=== PATIENT | female | born 1985 | race Caucasian/White ===

== ENCOUNTER 2019-11-24 10:35 | Outpatient (CLI) | payer OTHER, SELFPAY ==
--- NOTE | ~2019-11-24 | US_ITS ---
EXAMINATION: US OB <=14 wk fetus w TV DATE: 11/24/2019 11:27 INDICATION: First trimester dating TECHNIQUE: Real-time pelvic transabdominal and transvaginal ultrasound was performed. COMPARISON: None. FINDINGS: The uterus measures 9.0 x 5.0 x 6.7 cm. There is an intrauterine gestational sac. A yolk s ac is identified. heart motion is identified measuring 138 beats per minute (bpm) by M-mode Dop pler. The crown rump length measures 9 mm , which correlates with an estimated gestational age of 7 weeks and 1 day(s) (+/-) 3 day(s). The right ovary measures 2.2 x 1.0 x 1.4 cm. The left ovary measures 3.4 x 2.8 x 2.1 cm. There is no free fluid in the pelvis. IMPRESSION: 1. Live intrauterine with an estimated gestational age of 7 weeks and 1 day(s) (+/-) 3 day( s) and an estimated delivery date of 07/11/2020. Reviewed, dictated and finalized at location A. IMPRESSION: 1. Live intrauterine with an estimated gestational age of 7 weeks and 1 day(s) (+/-) 3 day(s) and an estimated delivery date of 07/11/2020.
== END 2019-11-24 10:36 | disposition home or self-care (01) ==
PROVIDERS: PCP Family Medicine; Visit Provider Obstetrics & Gynecology
DX: Z32.01 Encounter for pregnancy test, result positive (principal); Z3A.01 Less than 8 weeks gestation of pregnancy
CPT/HCPCS: 76801; 76817

== ENCOUNTER 2020-05-17 14:48 | Outpatient (CLI) | payer OTHER, SELFPAY ==
--- NOTE | ~2020-05-17 | US_ITS ---
EXAMINATION: US venous doppler [facility] DATE: 05/17/2020 15:31 INDICATION: Lower limb pain TECHNIQUE: Raymond scale images without and with compression and Doppler images of the bilateral lower e xtremity veins were obtained. COMPARISON: None FINDINGS: The right common femoral vein, profunda femoral vein, femoral vein, popliteal vein, peroneal trunk, p osterior tibial veins, and greater saphenous vein are patent. The left common femoral vein, profunda femoral vein, femoral vein, popliteal vein, peroneal trunk, po sterior tibial veins, and greater saphenous vein are patent. IMPRESSION: 1. Patent bilateral lower extremity veins. No evidence of deep venous thrombosis. Reviewed, dictated and finalized at location A. IMPRESSION: 1. Patent bilateral lower extremity veins. No evidence of deep venous thrombosi s.
== END 2020-05-17 14:49 | disposition home or self-care (01) ==
PROVIDERS: PCP Family Medicine; Visit Provider Obstetrics & Gynecology Obstetrics
DX: O22.03 Varicose veins of lower extremity in pregnancy, third trimester (principal); O26.893 Other specified pregnancy related conditions, third trimester; M79.662 Pain in left lower leg; Z3A.32 32 weeks gestation of pregnancy
CPT/HCPCS: 93970

== ENCOUNTER 2020-07-06 09:32 | Outpatient (RCR) | payer OTHER, SELFPAY ==
--- NOTE | ~2020-07-06 | US_ITS ---
EXAMINATION: US OB limited DATE: 07/06/2020 10:34 INDICATION: Oligohydramnios. Third trimester. TECHNIQUE: Real-time ultrasound of the pelvis was performed. COMPARISON: Ultrasound 11/24/19 FINDINGS: There is a single fetus in vertex presentation. The placenta is posterior. heart rate is 137 b eats per minute (bpm). The amniotic fluid index is 13.4 cm, which is normal. IMPRESSION: 1. Single living fetus in vertex presentation. 2. Normal amniotic fluid index. Reviewed, dictated and finalized at location A. D PARTY MANAGER
[2020-07-06 10:12] VITALS: BP 123/79; PULSE 78
--- NOTE | 2020-07-06 11:38 | PC.NURSE ---
1115 dr oh returned call to exchange notified of reactive nst and [place] of 13.4, december dc to home
== END 2020-07-13 07:37 | disposition home or self-care (01) ==
LOC: ANHOBOP 09:32
PROVIDERS: PCP Family Medicine; Visit Provider Obstetrics & Gynecology
DX: O36.8390 Maternal care for abnormalities of the fetal heart rate or rhythm, unspecified trimester, not applicable or unspecified (principal); Z3A.39 39 weeks gestation of pregnancy
CPT/HCPCS: 59025; 76815

== ENCOUNTER 2020-07-07 15:59 | Inpatient (IN) | payer OTHER, SELFPAY ==
[2020-07-07] VITALS (11 sets, daily range): BP systolic 105–124; BP diastolic 57–74; PULSE 67–79; TEMP 36.9; BMI 35.8
--- NOTE | 2020-07-07 16:56 | WPDANESEPPF ---
Anes - Initial Pre Proc Eval Procedure: Labor epidural Date/Time: 07/07/20 16:56 Surgeon: Manfred Greene MD Pre Op Diagnosis: Labor pain Pre Op Diagnosis: Induction of Labor Patient Data Age: 34 Gender: F Height: Weight: Last Vital Signs Pulse 73 07/07/20 16:21 BP 111/74 07/07/20 16:21 Allergies Allergy/AdvReac Type Severity Reaction Status Date / Time No Known Allergies Allergy Verified 07/06/20 08:37 Home Medications Medication Instructions Recorded Confirmed Type adalimumab 40 mg/0.4 mL 40 mg SUB-Q WEEKLY PRN each 07/14/19 07/06/20 History subcutaneous syringe kit vits 75-iron 28 mg-folic pkg PO 07/14/19 07/06/20 History acid 800 mcg-omega-3 oral combo pack folic acid 06/12/20 07/06/20 History Patient hx anesthesia problems: none Family hx anesthesia problems: none PMFSH Past Medical History Medical History (Updated 07/06/20 @ 12:43 by Manfred Greene MD) Anxiety test positive Rheumatoid arthritis Supervision of other high risk pregnancies, first trimester Family History Family History Father Family history of elevated blood lipids Family history of coronary artery disease Hypertension Mother Patient's mother is Family history of malignant neoplasm of brain, Onset Age: 52 Grandparent Family history of malignant neoplasm of breast Family history of coronary artery disease Social History Social History Smoking status: Current every day smoker Second hand tobacco smoke exposure: No Alcohol intake: current Substance use: never Spiritual care concerns: No Anes - Eval Final PreProcedure Day of Procedure 07/07/20 16:56 Patient weight: obese Neurological: alert and oriented ASA classification: III Anesthesia type and monitoring: regional epidural Informed Consent: The patient's anesthetic plan and its attendant risks and benefits were discussed with the patient/family/POA. Questions were solicited and answers provided to the satisfaction of the patient/family/POA.
[2020-07-07 17:04] LABS: Basophils Percent Auto 0.2 % (0.2-1.2); Eosinophils Percent Auto 0.3 % (0-4.4); Hematocrit 34.2 % (37.0-47.0); Immature Granulocyte Absolute 0.05 K/mm3 (0.00-0.031); Immature Granulocyte Percent A 0.4 % (0-0.5); Lymphocytes Absolute Auto 2.28 K/mm3 (0.9-3.2); Lymphocytes Percent Auto 17.8 % (18.3-44.2); Mean Corpuscular HGB Conc 35.1 g/dl (32-36); Mean Corpuscular Volume 91.2 fl (80-100); Mean Platelet Volume 10.2 fl (7.4-10.4); Monocytes Absolute Auto 0.9 K/mm3 (0.1-0.6); Monocytes Percent Auto 7.3 % (2.6-8.5); Neutrophils Absolute Auto 9.5 K/mm3 (1.3-6.7); Platelet Count Result 218 k/mm3 (150-375); Red Blood Count 3.75 M/mm3 (4.2-5.4); Red Cell Distribution Width 12.4 % (11.5-14.5); White Blood Count 12.8 K/mm3 (4.5-10.0)
--- NOTE | 2020-07-07 17:18 | LDADM ---
This patient, Kymberly Garcia, was admitted to Labor/Delivery/Recovery 106 on 07/07/20 at 15:59. Plans for labor, pain management and were discussed with patient. Patient/family oriented to hospital policies and general routines including ID bracelet, bed and alarms, visiting hours, pain management, procedures, bathroom and other care routines, personal items, smoking policy, room service/diet and guest tray routines, security routines, and visiting hours. Patient/Family are encouraged to report perceived risks to care and to ask questions if they do not understand what they are told or what they should do. See OBIX for further documentation.
[2020-07-07] MEDS: DINOPROSTONE 10 MG VAG INSERT VAGINAL (17:40)
[2020-07-07 17:57] LABS: HIV 1/2 Ab P24 Ag Result Negative (Negative)
[2020-07-08] VITALS (48 sets, daily range): BP systolic 89–136; BP diastolic 54–102; PULSE 57–86; RESP 16–18; TEMP 36.4–37.2; O2SAT 95–100
[2020-07-08] MEDS: LACTATED RINGERS 1,000 ML 125 ML IV CONT ×2 (06:26→09:37)
[2020-07-08] MEDS: OXYTOCIN 30 UNITS/NS 500 ML 30 UNITS/500 ML BAG IV CONT (06:27)
[2020-07-08 07:46] LABS: Rapid Plasma Reagin Non-Reactive (NonReactive)
[2020-07-08] MEDS: fentaNYL CITRATE INJ (*CRX) 100 MCG/2 ML VIAL IV PUSH ×2 (08:39→09:36)
[2020-07-08] MEDS: OXYTOCIN 30 UNITS/NS 500 ML 30 UNITS/500 ML BAG 125 UNITS IV CONT (10:56)
--- NOTE | 2020-07-08 12:19 | PM.OBPRVD ---
OB - Delivery Note Procedure Delivery date: 07/08/20 Procedure: Spontaneous vaginal delivery events: Rhuematoid arthritis Intrapartal events: None Induction method: per cervidil protocol Delivery augmentation: rupture of membranes and pitocin Delivery monitor: external FHT Route of delivery: Laceration Description: Perineal - 1st Degree Delivery repair: vicryl (3.0 vicryl) Specimen: No Quantitative Blood Loss: 250 Anesthesia type: Local Disposition: floor Complications: None Narrative: Patient admitted for medical induction of labor. Cervix initally was 1/50/-3. She had cervidil last pm and then was started on Pitocin this morning. At approximately 0824 she had AROM clear fluid. Cervix was 4/75%/-2. She requested epidural. Epidural was attempted but was not successful and she then felt pressure and was complete. She delivered a female at 1015. Apgars 8,9. weight 7lb7oz. was vigorously crying and she was placed on maternal abdomen. Delayed cord clamping until cord apulsatile which was approximately 45 sec after delivery. Cord blood and cord gases obtained. Placenta delivered spontaneously and intact. She sustained a first degree perineal laceration repaired with 3.0 vicryl. She tolerated procedure well. Baby Date of : 07/08/20 Time of : 10:15 Weeks of gestation at delivery: 39 Infant gender: Female Weight (pounds): 7 Weight (ounces): 7 presentation: vertex position: Right Occiput Anterior Placenta delivery description: Spontaneous cord vessel description: 3 Vessels score one minute: 8 score five minutes: 9
--- NOTE | 2020-07-08 12:35 | PM.OBPNVD ---
OB - PN: Subj Subjective Date/time seen: 07/08/20 0830 FHT 135 Cat 1. AROM clear. Cervix /2. Continue pitocin. Patient desires epidural. OB - PN: Obj Data Labs CBC & Chem 7: 07/07/20 16:58 Labs: Laboratory Results - last 24 hr 07/07/20 07/07/20 07/07/20 16:58 16:58 16:58 WBC 12.8 H RBC 3.75 L Hgb 12.0 Hct 34.2 L MCV 91.2 MCH 32.0 MCHC 35.1 RDW 12.4 Plt Count 218 MPV 10.2 Immature Gran % (Auto) 0.4 Neut % (Auto) 74.0 H Lymph % (Auto) 17.8 L [place] % (Auto) 7.3 Eos % (Auto) 0.3 Baso % (Auto) 0.2 Lymph # (Auto) 2.28 [place] # (Auto) 0.9 H Eos # (Auto) 0.0 Baso # (Auto) 0.0 Abs Immat Gran (auto) 0.05 H Absolute Neuts (auto) 9.5 H Absolute Nucleated RBC 0.0 Nucleated RBC % 0.0 RPR Non-reactive HIV 1&2 Ab/P24 Ag 4thGn Negative Blood Type Antibody Screen 07/07/20 16:58 WBC RBC Hgb Hct MCV MCH MCHC RDW Plt Count MPV Immature Gran % (Auto) Neut % (Auto) Lymph % (Auto) [place] % (Auto) Eos % (Auto) Baso % (Auto) Lymph # (Auto) [place] # (Auto) Eos # (Auto) Baso # (Auto) Abs Immat Gran (auto) Absolute Neuts (auto) Absolute Nucleated RBC Nucleated RBC % RPR HIV 1&2 Ab/P24 Ag 4thGn Blood Type O Positive Antibody Screen Negative OB - PN A/P Time Spent With Patient Time: Total time spent is greater than 50% in coordination of care (as documented) at patient's floor/unit and/or counseling patient:
--- NOTE | 2020-07-08 12:37 | PM.IMHP ---
H&P: HPI History of Present Illness Date/Time: 07/08/20 12:37 Chief complaint: Induction of Labor Narrative: Kymberly Garcia is a 34 year old female at 39 3/7 weeks by LMP 10/06/19 with an EDC 07/12/20. PNC significant for history of rheumatoid arthritis which she was doing well on Humira injections. Last injection at 37 weeks. Has not had any significant RA symptoms or flare ups during this gestation. She also has Sjorgens and had positive SSA. No signs of heart block during the . She has a remote history of hypertension. She has not been on medication prior to or during . Her blood pressures have been normal during . She was taking a baby aspirin after 12 weeks until 37 weeks. Also significant for tobacco abuse. She was counseled and declined medication. She is a light every day smoker. She has been counseled regarding risk benefits of medical induction of labor versus spontaneous and desires induction. GBS neg. Labs reviewed. Review of Systems Review of Systems: All systems reviewed & are unremarkable except as noted in HPI and below Constitutional: Constitutional: Reports no additional constitutional complaints and Denies headache(s) Eyes: Eyes: Denies spots in vision ENT: Reports system reviewed and no additional complaints, except as documented and Denies headache(s) Cardiovascular: Cardiovascular: Denies chest pain and Denies dyspnea Respiratory: Respiratory: Denies dyspnea Gastrointestinal: Gastrointestinal: Reports no additional gastrointestinal complaints Genitourinary: Genitourinary: Reports amenorrhea Musculoskeletal: Musculoskeletal: Reports no additional musculoskeletal complaints Integumentary/Breasts: Skin/Breast: Denies breast mass and Denies rash Neurologic: Denies headache(s) Psychiatric: Psychiatric: Reports no additional psychiatric complaints [facility] Past Medical History Medical History (Updated 07/08/20 @ 12:46 by Manfred Greene MD) Anxiety test positive Rheumatoid arthritis Supervision of other high risk pregnancies, first trimester Family History Family History Father Family history of elevated blood lipids Family history of coronary artery disease Hypertension Mother Patient's mother is Family history of malignant neoplasm of brain, Onset Age: 52 Grandparent Family history of malignant neoplasm of breast Family history of coronary artery disease Social History Social History Smoking status: Former smoker Second hand tobacco smoke exposure: No Alcohol intake: current Substance use: never Spiritual care concerns: No Meds Home Medications and Allergies Home Medications Medication Instructions Recorded Confirmed Type adalimumab 40 mg/0.4 mL 40 mg SUB-Q WEEKLY each 07/14/19 07/08/20 History subcutaneous syringe kit Allergies Allergy/AdvReac Type Severity Reaction Status Date / Time No Known Allergies Allergy Verified 07/06/20 08:37 Vital Signs Vital Signs - 24 hr 07/07/20 16:20 07/07/20 16:21 07/07/20 17:01 Temperature 98.5 F Pulse Rate 73 72 Blood Pressure 111/74 105/69 Pulse Oximetry 07/07/20 17:31 07/07/20 18:01 07/07/20 18:31 Temperature Pulse Rate 70 75 68 Blood Pressure 114/70 118/68 109/68 Pulse Oximetry 07/07/20 19:01 07/07/20 19:31 07/07/20 20:09 Temperature Pulse Rate 79 73 67 Blood Pressure 111/67 115/67 124/57 L Pulse Oximetry 07/07/20 20:31 07/07/20 20:51 07/08/20 03:05 Temperature Pulse Rate 68 68 72 Blood Pressure 121/72 121/72 115/70 Pulse Oximetry 07/08/20 03:15 07/08/20 06:35 07/08/20 06:37 Temperature 98.8 F 98.1 F Pulse Rate 72 Blood Pressure 130/70 Pulse Oximetry 07/08/20 08:26 07/08/20 08:31 07/08/20 09:01 Temperature Pulse Rate 66 63 59
--- NOTE | 2020-07-08 12:46 | PC.NURSE ---
Patient transferred to post room #284 via wheelchair. Support person present. Oriented to unit, room, information board, rooming in, admission packet and security measures. Patient verbalizes understanding.
[2020-07-08] MEDS: IBUPROFEN 600 MG TABLET PO ×2 (13:19→19:06)
[2020-07-08] MEDS: LANOLIN (LANSINOH) 7.5 GM CREAM 1 APPLIC TOPICAL (13:20)
[2020-07-09] MEDS: IBUPROFEN 600 MG TABLET PO ×2 (05:11→10:38)
[2020-07-09 05:33] LABS: Hematocrit 31.2 % (37.0-47.0); Hemoglobin 10.8 g/dL (12.0-15.0)
--- NOTE | 2020-07-09 07:40 | PC.NURSE ---
PT introductions made and plan of care discussed per post , pain management, breast feeding, daily care activities and pending discharge to home> PT verbalized understanding of such care.
[2020-07-09 07:45] VITALS: BP 114/78; PULSE 83; RESP 18; TEMP 37; O2SAT 97
--- NOTE | 2020-07-09 08:09 | WPDANESPN ---
Anes - Prog Note Post-Op Date/Time: 07/09/20 08:09 Cardiovascular status: normal Respiratory status: normal Airway patency: baseline Mental status: baseline Post-Op hydration status: normal Vital Signs: Last Vital Signs Temp 36.9 C 07/08/20 20:05 Pulse 79 07/08/20 20:05 Resp 16 07/08/20 20:05 BP 112/67 07/08/20 20:05 Pulse Ox 100 07/08/20 20:05 Pain Score (VAS): 0 Laboratory Tests 07/09/20 05:16 07/09/20 05:16 Hgb 10.8 L Hct 31.2 L Post-procedural complaints: none Patient Feedback: Patient satisfied with anesthetic care.
--- NOTE | 2020-07-09 08:10 | WPDANLDPN2 ---
Anes-Prog Note L&D Date/Time: 07/09/20 08:10 Comfortable throughout: labor and delivery Neuraxial method: epidural Epidural/Spinal procedure site: clean & non-tender Neuro status: Neuro function grossly intact. Cardiovascular status: normal Respiratory status: normal Airway patency: baseline Mental status: baseline Post-Op hydration status: normal Vital Signs: Last Vital Signs Temp 36.9 C 07/08/20 20:05 Pulse 79 07/08/20 20:05 Resp 16 07/08/20 20:05 BP 112/67 07/08/20 20:05 Pulse Ox 100 07/08/20 20:05 Pain score (VAS): 0 Post-procedural complaints: none Patient feedback: Patient satisfied with anesthetic care.
--- NOTE | 2020-07-09 09:39 | PM.OBPNVD ---
OB - PN: Subj Subjective Date/time seen: 07/09/20 09:39 Patient comments: pain well controlled, tolerating diet and other (Decreasing lochia.) baby status: doing well and nursing well OB - PN: Obj Data Labs CBC & Chem 7: 07/09/20 05:16 Labs: Laboratory Results - last 24 hr 07/09/20 05:16 Hgb 10.8 L Hct 31.2 L OB - PN A/P Plan day: 2 Plan: discharge home and other Comments: Patient doing well. Follow up 4-6 weeks. Discharge instructions provided. Time Spent With Patient Time: Total time spent is greater than 50% in coordination of care (as documented) at patient's floor/unit and/or counseling patient: Time with patient: less than 15 minutes Exam Psych: Affect: normal affect Other: Abd: fundus firm below umbilicus, nontender Perineum: healing Ext: nontender
[2020-07-09 10:30] VITALS: PULSE 83; RESP 18; O2SAT 97
[2020-07-09] MEDS: BENZOCAINE 20% AER SPR (*SP) 56 GM CAN 1 SPRAY TOPICAL (10:37)
[2020-07-09] MEDS: ACETAMINOPHEN 325 MG TABLET 650 MG PO (10:37)
[2020-07-09] MEDS: WITCH HAZEL 40 PADS 1 PAD TOPICAL (10:37)
[2020-07-09] MEDS: DOCUSATE SODIUM 100 MG CAPSULE PO (10:38)
[2020-07-09] MEDS: MULTIVIT/MIN/PREN/FOL AC/IRON TABLET 1 TAB PO (10:38)
--- NOTE | 2020-07-09 11:30 | PC.NURSE ---
PT received discharge instructions per protocol and verbalized understanding of such instructions.
--- NOTE | 2020-07-09 11:50 | PC.NURSE ---
PT discharged to home ambulatory accompanied by spouse and and taken to waiting car.
[2020-07-10 10:01] VITALS: BP 116/74; PULSE 64; RESP 16; TEMP 36.9; O2SAT 99
--- NOTE | 2020-08-05 09:31 | PM.DS ---
DS: Admitting Diagnosis Admitting Diagnosis Admitting Diagnosis: Medical induction of labor. complicated by Rheumatoid arthritis. DS: Discharge Diagnosis Discharge Diagnosis (1) Elective induction of labor planned: Status: Acute (2) Intrauterine : Code(s): Z34.90 - Encounter for supervision of normal , unspecified, unspecified trimester Status: Acute DS: Summary Hospital Course Hospital Course: Patient admitted for induction of labor with cervidil. She had a spontaneous vaginal delivery uncomplicated. She did well . She requested discharge home on day 1. Time Spent with Patient Time attestation: Total time spent providing and/or coordinating discharge services: Exam Const: General: comfortable and no acute distress Eyes: General: appearance normal, both eyes and all related structures Resp: Effort & Inspection: normal respiratory effort Psych: Affect: normal affect Other: Abd: fundus firm below umbilicus, nontender Perineum: healing Ext: nontender Discharge Plan Discharge Attending physician on discharge: Manfred Greene Consulting providers: Kel Araya Discharging Clinician: Manfred Greene Anticipated Discharge Date/Time: 07/09/20 09:36 Patient Disposition: Home, Self-Care Activity: may shower, no straining, may drive after 2 weeks, as tolerated and pelvic rest Diet: regular Discharge Instructions: Education: Mom and Baby Guide Given to: Mother Follow-Up: Call your delivering provider's office for an appointment to be seen in: 4 Weeks Mom and baby should come to the [facility] for the follow-up appointment. Appointment Date/Time: July 10, 2020 at 10:00 am What to expect at your follow-up visit: Blood Pressure Check Call [phone] if you are unable to keep your appointment time. BREAST CARE: * Wear a snug supportive bra. * For engorgement discomfort: Breast Feeding: * Apply warm moist washcloths * Express milk as needed to relieve engorgement * Wear loose clothing Bottle Feeding: * May apply ice packs * For sore nipples: * Identify correct latch-on * Apply warm moist washcloths before and after nursing * Air dry nipples after nursing * May apply Lansinoh cream to nipples PERINEAL CARE: * Until bleeding stops, use your gerry bottle after urinating * Change your pad frequently throughout the day * You may take sitz baths several times a day (fill your bathtub with warm water and soak for 20 minutes.) Do NOT bathe in the water * No tub baths until seen by your physician - You may shower ACTIVITY: * Rest as much as possible. * Do not exercise or lift anything heavier than your baby (such as laundry or other children.) * Avoid stairs or driving as much as possible. * Do not put anything into the vagina. No douching, tampons, or sexual activity until seen by physician. NOTIFY PHYSICIAN IF YOU HAVE ANY QUESTIONS OR IF ANY OF THE FOLLOWING SYMPTOMS OCCUR: * If your perineum becomes red, swollen, or more painful than what you have experienced in the hospital. * If your vaginal bleeding becomes foul smelling. * If your vaginal bleeding becomes more heavy than a period or if your bleeding changes from pink to bright red. However, you may pass an occasional walnut-sized clot once or twice for the first week . * If you experience a sharp, shooting pain in you calves. * If you discover a hard, reddened area on your breast or if you experience flu-like symptoms. * If you have a fever of 100.4 or greater DIET: * Eat regular, well-balanced meals. * Drink plenty of fluids daily. If , drink to thirst. Patient Instructions: Antibiotic Form Stand Alone Forms: General Discharge Information Follow-up/Referrals: Manfred Greene MD [Physician] - Discharg
== END 2020-07-09 11:55 | disposition home or self-care (01) | DRG 807 ==
LOC: ANHLDR 16:09 → ANHOB2 07-08 12:55
PROVIDERS: Admitting Provider Obstetrics & Gynecology; PCP Family Medicine; Visit Provider Obstetrics & Gynecology
DX: O99.214 Obesity complicating childbirth (principal); Z37.0 Single live birth; O70.0 First degree perineal laceration during delivery; O99.334 Smoking (tobacco) complicating childbirth; E66.9 Obesity, unspecified; F17.200 Nicotine dependence, unspecified, uncomplicated; Z3A.39 39 weeks gestation of pregnancy
CPT/HCPCS: 36415; 85014; 85018; 85025; 86592; 86703; 86850; 86900; 86901; A9270; G0432; J2590; J2795; J3010; J7120

== ENCOUNTER → 2021-03-08 06:57 | Outpatient (CLI) | payer OTHER, SELFPAY ==
[2021-03-08 18:17] LABS: SARS-CoV-2 RNA PCR Negative
== END ==
PROVIDERS: PCP Family Medicine; Visit Provider Physician Assistant
DX: R68.89 Other general symptoms and signs (principal); Z20.822 Contact with and (suspected) exposure to COVID-19
CPT/HCPCS: C9803; U0003; U0005

== ENCOUNTER 2022-10-08 09:59 | Emergency (ER) | payer OTHER, SELFPAY ==
--- NOTE | ~2022-10-08 | XR_ITS ---
EXAMINATION: XR abdomen/kub 1V DATE: 10/08/2022 10:49 INDICATION: Bilateral flank pain. TECHNIQUE: A supine view of the abdomen on 2 radiographs was obtained. COMPARISON: None. FINDINGS: There are no dilated loops of bowel. There is a moderate volume of stool in the colon. The kidneys are obscured by bowel. IMPRESSION: 1. Normal bowel gas pattern. Reviewed, dictated and finalized at location A. COATER
[2022-10-08 10:41] VITALS: BP 121/71; PULSE 95; RESP 18; TEMP 36.9; O2SAT 100
--- NOTE | 2022-10-08 10:42 | ED.ABDPAIN ---
HPI - Abdominal Pain General Chief Complaint: Abdominal Pain Stated Complaint: bilateral side and back pain Time Seen by Provider: 10/08/22 10:20 Source: patient Mode of arrival: ambulatory Limitations: no limitations History of Present Illness HPI narrative: Kymberly is a 36-year-old female patient presenting to the clinic today with complaints of bilateral abdominal pain and back pain. She reports the symptoms just started yesterday. Is having some nausea with her symptoms. Denies any vomiting or diarrhea. Last bowel movement was this morning and was normal. She denies any unusual urinary symptoms. She denies any vaginal discharge. Last menstrual period was 2 and half weeks ago. She denies being . No history of abdominal surgeries. Rates pain 7/10 currently and states that is sharp and burning mostly in the left abdomen Related Data Home Medications Medication Instructions Recorded Confirmed abatacept 125 mg/mL subcutaneous 125 mg subcut WEEKLY 10/08/22 10/08/22 syringe (Orencia) Allergies Allergy/AdvReac Type Severity Reaction Status Date / Time No Known Allergies Allergy Verified 10/08/22 10:33 Review of Systems Review of Systems: Pertinent positives per HPI. Patient denies any fever, chills, rash, headache, visual changes, dizziness, cough, runny nose, sore throat, shortness of breath, chest pain, palpitations, vomiting, diarrhea, constipation. PENDING SALE TO [facility] Past Medical History Medical History Anxiety test positive Rheumatoid arthritis Supervision of other high risk pregnancies, first trimester Family History Family History Father Family history of elevated blood lipids Family history of coronary artery disease Hypertension Mother Patient's mother is Family history of malignant neoplasm of brain, Onset Age: 52 Grandparent Family history of malignant neoplasm of breast Family history of coronary artery disease Social History Social History Social History: Smoking packs per day: 0.5 Smoking cigarettes per day: 10.0 Years smoked: 17 Smoking pack-years: 8.50 Smoking status: Current every day smoker Tobacco type: cigarettes Second hand tobacco smoke exposure: No Alcohol intake: current Alcohol use details: Occasionally Substance use: never Substance use type: does not use Living arrangements: with family Occupation/Education: occupation Gender identity (if verbalized by the patient): Female Sexual Orientation (if Verbalized by the Patient): Straight or Heterosexual Spiritual care concerns: No Comments At the time of my signature, I reviewed and agree with the nursing past medical, surgical, social, and family history. There is no relevant family history pertinent to the patient complaint. Exam Narrative: General: Well-developed, well nourished, in no apparent distress. Head: Normocephalic, atraumatic. Cardio: Regular rate and rhythm, s1 and s2 normal, no murmur appreciated. Resp: Clear to auscultation bilaterally, no rhonchi, rales, wheezing or rubs. Abdomen: Soft, pliable, nondistended, bowel sounds present in all quadrants, tender to palpation to the mid epigastric, right lower, left upper, and left lower abdomen, no organomegly, left CVAT tenderness. Course Course Emergency Course: Portions of this record may have been created with voice recognition software. Level of Care: Express Care Visit Vital Signs Vital signs: Vital Signs Temperature 36.9 C 10/08/22 10:41 Pulse Rate 95 10/08/22 10:41 Respiratory Rate 18 10/08/22 10:41 Blood Pressure 121/71 10/08/22 10:41 Pulse Oximetry 100 10/08/22 10:41 Oxygen Delivery Room Air 10/08/22 10:41 Temperature 36.9 C 10/08/22 10:41 Pulse Rate 9
== END 2022-10-08 11:09 | disposition home or self-care (01) ==
PROVIDERS: Emergency Provider Nurse Practitioner Family; PCP Family Medicine
DX: N39.0 Urinary tract infection, site not specified (principal); F17.210 Nicotine dependence, cigarettes, uncomplicated; M06.9 Rheumatoid arthritis, unspecified
CPT/HCPCS: 74018; 81003; 81025; 87086; 87088; 99213; G0463

== ENCOUNTER 2022-10-08 20:22 | Emergency (ER) | payer OTHER, SELFPAY ==
[2022-10-08 20:29] VITALS: BP 112/70; PULSE 80; RESP 19; TEMP 36.7; O2SAT 100
[2022-10-08 20:43] LABS: Basophils Absolute Auto 0.1 K/mm3 (0.0-0.1); Basophils Percent Auto 0.5 % (0.2-1.2); Eosinophils Absolute Auto 0.1 K/mm3 (0-0.3); Eosinophils Percent Auto 1.1 % (0-4.4); Hematocrit 37.7 % (37.0-47.0); Hemoglobin 12.6 g/dL (12.0-15.0); Immature Granulocyte Absolute 0.02 K/mm3 (0.00-0.031); Immature Granulocyte Percent A 0.2 % (0-0.5); Lymphocytes Absolute Auto 1.78 K/mm3 (0.9-3.2); Lymphocytes Percent Auto 18.4 % (18.3-44.2); Mean Corpuscular HGB Conc 33.4 g/dl (32-36); Mean Corpuscular Hemoglobin 31.3 pg (26-34); Mean Corpuscular Volume 93.5 fl (80-100); Mean Platelet Volume 8.9 fl (7.4-10.4); Monocytes Percent Auto 10.1 % (2.6-8.5); Neutrophils Absolute Auto 6.7 K/mm3 (1.3-6.7); Neutrophils Percent Auto 69.7 % (45.5-73.1); Platelet Count Result 205 k/mm3 (150-375); Red Blood Count 4.03 M/mm3 (4.2-5.4); Red Cell Distribution Width 12.5 % (11.5-14.5); White Blood Count 9.7 K/mm3 (4.5-10.0)
[2022-10-08 20:58] LABS: Alanine Aminotransferase 13 U/L (6-35); Albumin Level 4.3 g/dL (3.5-5.1); Alkaline Phosphatase 52 U/L (38-126); Anion Gap 6 mmol/L (8-16); Aspartate Amino Transferase 18 U/L (14-36); Bilirubin,Total 0.4 mg/dL (0.2-1.3); Blood Urea Nitrogen 14 mg/dL (7-17); Carbon Dioxide 28 mmol/L (22-30); Chloride 104 mmol/L (98-107); Estimated CRCL calculation 100 ml/min; Estimated Glomerular Filt Rate > 60; Glucose 89 mg/dL (65-110); Lipase 51 U/L (23-300); Potassium 3.7 mmol/L (3.4-5.0); Sodium 138 mmol/L (137-145)
[2022-10-08 22:21] LABS: Appearance Urine Cloudy (Clear); Bacteria Urine None Seen /hpf; Bilirubin Urine Negative (Negative); Blood Urine Negative (Negative); Color Urine Yellow (Yellow); Glucose Urine UA Negative (Negative); Ketones Urine Negative (Negative); Leukocyte Esterase Ur 1+ LEU/UL (Negative); Need Manual Microscopic Reviewed; Nitrate Urine Negative (Negative); Non Pathogenic Casts 0-2; Protein Urine Negative (Negative); RBC Urine 0-2 /hpf (0-2); Specific Grav Ur 1.015 (1.001-1.035); Squamous Epithelial Cell Urine Occasional /hpf (Few); Urobilinogen Urine 0.2 mg/dL (<2.0); WBC Urine 0-5 /hpf
[2022-10-08 22:33] LABS: Add Urine Microscopic? YES
--- NOTE | 2022-10-09 00:50 | PC.NURSE ---
Patient called for room assignment, no answer.
--- NOTE | 2022-10-09 01:04 | PC.NURSE ---
Patient not seen in waiting room, marked as left without being seen.
== END 2022-10-09 01:05 | disposition left against medical advice (07) ==
LOC: ANHED 20:50
PROVIDERS: Emergency Provider Emergency Medicine; PCP Family Medicine
DX: R10.9 Unspecified abdominal pain (principal)
CPT/HCPCS: 36415; 74018; 80053; 81001; 81003; 81025; 83690; 85025; 87086; 87088; 99199; 99213; G0463

== ENCOUNTER 2022-10-09 11:48 | Outpatient (CLI) | payer OTHER, SELFPAY ==
--- NOTE | ~2022-10-09 | CT_ITS ---
EXAMINATION: CT abdomen pelvis w con DATE: 10/09/2022 12:28 INDICATION: Left lower quadrant abdominal pain. TECHNIQUE: Computed tomography (CT) of the abdomen and pelvis was performed with 100 mL Omnipaque 350 intravenous contrast. Automated exposure control and iterative reconstruction technique were employe d. The dose-length product was 497.24 mGy-cm. COMPARISON: None. FINDINGS: The visualized portions of the lung bases demonstrate mild atelectasis in the left. No pleu ral effusion. The heart size is normal. No pericardial effusion. The liver, gallbladder, spleen, panc reas, and adrenal glands are normal. There are 2 mm and 1 mm stones in right kidney. There are 4 ston es in left kidney measuring up to 4 mm. There are scattered diverticula in the colon. There is fat st randing around a diverticulum of descending colon, consistent with diverticulitis. There are no dilat ed loops of bowel. The appendix is normal. There is physiologic fluid in the pelvis. There are no pat hologically enlarged lymph nodes. There is a benign bone island in right ilium. There is mild lumbar spondylosis. IMPRESSION: 1. Acute diverticulitis of descending colon. No perforation or abscess. Reviewed, dictated and finalized at location A. T HR MANAGER
== END 2022-10-09 11:49 | disposition home or self-care (01) ==
PROVIDERS: PCP Family Medicine; Visit Provider Physician Assistant
DX: K57.32 Diverticulitis of large intestine without perforation or abscess without bleeding (principal)
CPT/HCPCS: 74177; Q9967

== ENCOUNTER 2022-12-07 08:59 | Day surgery (SDC) | payer OTHER, SELFPAY ==
[2022-11-06 08:57] VITALS: BMI 27.1
[2022-11-22 11:49] VITALS: BMI 27.0
--- NOTE | 2022-12-06 12:02 | P.PNAN_ITS ---
Anes - Initial Pre Proc Eval Procedure: Operation Date: 12/07/22 11:00 Proposed Procedures p Diagnostic Colonoscopy - Lester Burch MD Date/Time: 12/06/22 12:02 Surgeon: Lester Burch MD Pre Op Diagnosis: Diverticulitis Patient Data Age: 36 Gender: F Height: 1.75 m Weight: 83 kg Allergies Allergy/AdvReac Type Severity Reaction Status Date / Time No Known Allergies Allergy Verified 11/22/22 11:44 Home Medications Medication Instructions Recorded Confirmed Type abatacept 125 mg/mL subcutaneous 125 mg subcut WEEKLY 10/08/22 11/22/22 History syringe (Orencia) sertraline 50 mg tablet See Rx Instructions .Route 11/09/22 11/22/22 Rx .COMPLEX #90 tabs Patient hx anesthesia problems: none Family hx anesthesia problems: none Results Review: All pre-operative results and documents have been reviewed as part of the pre- operative evaluation. FORMERLY [facility], [facility]–1983 Past Medical History Medical History Anxiety test positive Rheumatoid arthritis Supervision of other high risk pregnancies, first trimester Family History Family History Father Family history of elevated blood lipids Family history of coronary artery disease Hypertension Mother Patient's mother is Family history of malignant neoplasm of brain, Onset Age: 52 Grandparent Family history of malignant neoplasm of breast Family history of coronary artery disease Social History Social History Social History: Smoking packs per day: 0.5 Smoking cigarettes per day: 10.0 Years smoked: 15 Smoking pack-years: 7.50 Smoking status: Current every day smoker Tobacco type: cigarettes Second hand tobacco smoke exposure: No Alcohol intake: current Alcohol use details: Occasionally Substance use: never Substance use type: does not use Lack of Transportation: No Lack of Food: Never True Current Housing: I Have Housing Concerned About Future Housing: No Difficulty Paying Gas/Electric Bills: No Difficulty Paying for Meds: No Currently Unemployed: No Education: Decline to Answer Difficulty w/ Childcare or Family Care: No Living arrangements: with family Occupation/Education: occupation Gender identity (if verbalized by the patient): Female Sexual Orientation (if Verbalized by the Patient): Straight or Heterosexual Spiritual care concerns: No Anes - Eval Final PreProcedure Day of Procedure 12/06/22 12:02 Patient weight: overweight Heart: regular rate and rhythm Lungs: clear to auscultation and normal air movement Airway: Mallampati scale class II Neurological: alert and oriented Last oral intake: >/= 8 hours ASA classification: II Emergent: no Anesthetic plan: proceed Anesthesia type and monitoring: general GIVS Results Review: All pre-operative results and documents have been reviewed as part of the pre- operative evaluation. Informed Consent: The patient's anesthetic plan and its attendant risks and benefits were discussed with the patient/family/POA. Questions were solicited and answers provided to the satisfaction of the patient/family/POA.
--- NOTE | 2022-12-06 13:06 | PM.HPGS ---
History of Present Illness History of Present Illness Consent: Risks, benefits, and alternatives have been discussed and questions answered. Patient agrees to proceed with procedure. Chief complaint: Diverticulitis Narrative: Kymberly Garcia is a 36 year old female who was recently treated for acute diverticulitis. She did respond to antibiotics. She is undergoing colonoscopy to rule out other pathology, As she is having persistent symptoms. She gets pain from time to time he does same location but not as severe as when she had acute diverticulitis. There also has been a change in her bowel habits, sometimes having hard ball like stools and other times very soft stool. She states that eating fried foods greasy foods always give her a great deal of discomfort. Review of Systems Review of Systems: All systems reviewed & are unremarkable except as noted in HPI and below PMFSH Past Medical History Medical History Anxiety test positive Rheumatoid arthritis Supervision of other high risk pregnancies, first trimester Family History Family History Father Family history of elevated blood lipids Family history of coronary artery disease Hypertension Mother Patient's mother is Family history of malignant neoplasm of brain, Onset Age: 52 Grandparent Family history of malignant neoplasm of breast Family history of coronary artery disease Social History Social History Social History: Smoking packs per day: 0.5 Smoking cigarettes per day: 10.0 Years smoked: 15 Smoking pack-years: 7.50 Smoking status: Current every day smoker Tobacco type: cigarettes Second hand tobacco smoke exposure: No Alcohol intake: current Alcohol use details: Occasionally Substance use: never Substance use type: does not use Lack of Transportation: No Lack of Food: Never True Current Housing: I Have Housing Concerned About Future Housing: No Difficulty Paying Gas/Electric Bills: No Difficulty Paying for Meds: No Currently Unemployed: No Education: Decline to Answer Difficulty w/ Childcare or Family Care: No Living arrangements: with family Occupation/Education: occupation Gender identity (if verbalized by the patient): Female Sexual Orientation (if Verbalized by the Patient): Straight or Heterosexual Spiritual care concerns: No Meds Home Medications and Allergies Home Medications Medication Instructions Recorded Confirmed Type abatacept 125 mg/mL subcutaneous 125 mg subcut WEEKLY 03/05/23 05/04/23 History syringe (Orencia) sertraline 50 mg tablet See Rx Instructions .Route 11/09/22 12/07/22 Rx .COMPLEX #90 tabs Allergies Allergy/AdvReac Type Severity Reaction Status Date / Time No Known Allergies Allergy Verified 12/07/22 09:50 Exam Resp: Auscultation: clear to auscultation bilaterally Cardio: Rate: regular rate Rhythm: regular rhythm GI: GI Palp: Yes Soft to palpation and No Tenderness to palpation present (GI) Assessment and Plan Assessment and plan (1) Diverticulitis: Code(s): K57.92 - Diverticulitis of intestine, part unspecified, without perforation or abscess without bleeding Status: Acute Assessment and Plan: Colonoscopy with possible biopsy or polypectomy or cautery or injection of substances.
[2022-12-07 09:45] VITALS: BP 107/79; PULSE 70; RESP 20; TEMP 36.6; O2SAT 100
[2022-12-07] MEDS: LACTATED RINGERS 1,000 ML 150 ML IV CONT (10:02)
[2022-12-07 11:16] VITALS: BP 92/55; PULSE 78; RESP 16; O2SAT 100
[2022-12-07 11:26] VITALS: BP 96/58; PULSE 73; RESP 16; O2SAT 100
[2022-12-07 11:36] VITALS: BP 101/67; PULSE 66; RESP 16; O2SAT 100
--- NOTE | 2022-12-07 11:48 | SUR.PHASEII ---
PT AWAKE AND ALERT. DRESSED. EATING AND DRINKING. DENIES PAIN OR NAUSEA. PT WAITING FOR RIDE TO ARRIVE.
--- NOTE | 2022-12-19 08:31 | WPDANESPN ---
Anes - Prog Note Post-Op Date/Time: 12/19/22 08:31 Cardiovascular status: normal Respiratory status: normal Airway patency: baseline Mental status: baseline Post-Op hydration status: normal Vital Signs: Last Vital Signs Temp 36.6 C 12/07/22 09:45 Pulse 66 12/07/22 11:36 Resp 16 12/07/22 11:36 BP 101/67 12/07/22 11:36 Pulse Ox 100 12/07/22 11:36 O2 Del Method Room Air 12/07/22 11:36 Pain Score (VAS): 0 Laboratory Tests 07/09/20 05:16 07/09/20 05:16 Hgb 10.8 L Hct 31.2 L Post-procedural complaints: none Patient Feedback: Patient satisfied with anesthetic care.
== END 2022-12-07 11:55 | disposition home or self-care (01) ==
PROVIDERS: PCP Family Medicine; Visit Provider Internal Medicine Gastroenterology
PROC: 0DJD8ZZ Inspection of Lower Intestinal Tract, Via Natural or Artificial Opening Endoscopic (ICD-10-PCS; CPT 45378; principal; 2022-12-07 11:00)
DX: K57.92 Diverticulitis of intestine, part unspecified, without perforation or abscess without bleeding (principal)
CPT/HCPCS: 45378

== ENCOUNTER → 2023-01-08 10:05 | Outpatient (CLI) | payer OTHER, SELFPAY ==
--- NOTE | ~2023-01-08 | MR_ITS ---
MRI of the left foot CLINICAL HISTORY: Pain TECHNIQUE: Axial proton-density and proton-density fat-sat images, sagittal T1-weighted and STIR imag es, and coronal T1-weighted, proton-density fat-sat, and T2 fat-sat images were acquired through the forefoot. FINDINGS: Bone marrow signals are unremarkable. No fracture, bone marrow edema, or osteitis. Visualiz ed joint spaces are preserved. No significant degenerative change. No joint effusion identified. There are somewhat dumbbell shaped masses at the second and third interspaces, T1 hypointense, and he terogeneously mildly hyperintense overall on fluid sensitive sequences, most compatible with Larry's neuromas. Lesion at the second interspace measures 1.7 cm in length along the long axis of the toes, and 2.1 cm in coronal dimension from the dorsum of the foot extending to the plantar aspect. Lesion at the third interspace measures 2.3 cm in length, and 1.7 cm in coronal height. No other soft tissue masses are seen in the forefoot. Flexor and extensor tendons are intact. 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 Reviewed, dictated and finalized at location . 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
== END ==
PROVIDERS: PCP Family Medicine; Visit Provider Podiatrist Foot & Ankle Surgery
DX: R22.42 Localized swelling, mass and lump, left lower limb (principal); M79.672 Pain in left foot
CPT/HCPCS: 73718

== ENCOUNTER 2023-04-02 08:13 | Emergency (ER) | payer OTHER, SELFPAY ==
--- NOTE | ~2023-04-02 | CT_ITS ---
EXAMINATION: CT abdomen pelvis w con DATE: 04/02/2023 09:20 INDICATION: Left lower quadrant abdominal pain. TECHNIQUE: Computed tomography (CT) of the abdomen and pelvis was performed with 100 mL Omnipaque-350 intravenous contrast. Automated exposure control and iterative reconstruction technique were employe d. The dose-length product was 504.95 mGy-cm. COMPARISON: 10/09/2022 FINDINGS: Mild discoid atelectasis in the left lower lobe. Heart size is normal. No pericardial or pleural effu samson. Liver, gallbladder, spleen, pancreas, bilateral adrenal glands and kidneys are normal. Again se en are scattered diverticula along the descending colon along with some stranding surrounding a diver ticulum at the proximal descending colon consistent with diverticulitis. No bowel obstruction. Normal appendix. Bladder, uterus and left adnexa are unremarkable. 1.8 cm collapsed peripherally enhancing corpus luteum cyst at the right ovary. Small amount of likely physiologic free fluid in the cul-de-sa c. No abscess or free intraperitoneal gas. No pathologically enlarged abdominal or pelvic lymphadenop athy. Unchanged sclerotic bone island at the right ilium. IMPRESSION: 1. Radiographically uncomplicated acute diverticulitis at the proximal descending colon. Reviewed, dictated and finalized at location A. IMPRESSION: 1. Radiographically uncomplicated acute diverticulitis at the proximal descendi ng colon.
[2023-04-02 08:20] VITALS: BP 121/79; PULSE 100; RESP 15; TEMP 36.7; O2SAT 99
[2023-04-02 08:33] LABS: Basophils Percent Auto 0.3 % (0.2-1.2); Eosinophils Percent Auto 0.1 % (0-4.4); Hematocrit 40.6 % (37.0-47.0); Hemoglobin 13.5 g/dL (12.0-15.0); Immature Granulocyte Absolute 0.05 K/mm3 (0.00-0.031); Immature Granulocyte Percent A 0.3 % (0-0.5); Lymphocytes Absolute Auto 1.39 K/mm3 (0.9-3.2); Lymphocytes Percent Auto 8.8 % (18.3-44.2); Mean Corpuscular HGB Conc 33.3 g/dl (32-36); Mean Corpuscular Hemoglobin 31.5 pg (26-34); Mean Corpuscular Volume 94.9 fl (80-100); Monocytes Absolute Auto 1.2 K/mm3 (0.1-0.6); Monocytes Percent Auto 7.3 % (2.6-8.5); Neutrophils Absolute Auto 13.1 K/mm3 (1.3-6.7); Neutrophils Percent Auto 83.2 % (45.5-73.1); Platelet Count Result 232 k/mm3 (150-375); Red Blood Count 4.28 M/mm3 (4.2-5.4); Red Cell Distribution Width 12.9 % (11.5-14.5); White Blood Count 15.8 K/mm3 (4.5-10.0)
[2023-04-02 08:37] LABS: Add Urine Microscopic? YES; Appearance Urine Clear (Clear); Bacteria Urine Rare /hpf; Bilirubin Urine Negative (Negative); Blood Urine Negative (Negative); Color Urine Yellow (Yellow); Glucose Urine UA Negative (Negative); Ketones Urine Negative (Negative); Leukocyte Esterase Ur 3+ LEU/UL (Negative); Nitrate Urine Negative (Negative); Non Pathogenic Casts 0-2; Protein Urine Negative (Negative); RBC Urine 0-2 /hpf (0-2); Specific Grav Ur 1.011 (1.001-1.035); Squamous Epithelial Cell Urine Few /hpf (Few); Urobilinogen Urine 0.2 mg/dL (<2.0)
[2023-04-02 08:43] LABS: Alanine Aminotransferase 18 U/L (6-35); Albumin Level 4.4 g/dL (3.5-5.1); Alkaline Phosphatase 47 U/L (38-126); Anion Gap 5 mmol/L (8-16); Aspartate Amino Transferase 20 U/L (14-36); Blood Urea Nitrogen 8 mg/dL (7-17); Carbon Dioxide 27 mmol/L (22-30); Chloride 104 mmol/L (98-107); Estimated CRCL calculation 114 ml/min; Estimated Glomerular Filt Rate > 60; Glucose 100 mg/dL (65-110); Lipase 26 U/L (23-300); Sodium 136 mmol/L (137-145)
--- NOTE | 2023-04-02 08:55 | ED.ABDPAIN ---
HPI - Abdominal Pain General Chief Complaint: Abdominal Pain Stated Complaint: abd pain Time Seen by Provider: 04/02/23 08:37 History of Present Illness HPI narrative: Pt presents with LLQ abdominal pain for a day. Pt had episode of diverticulitis several month ago and this feels similar. Pt says she had normal colonoscopy afterward. Pt denies urinary symptoms or fever. Related Data Home Medications Medication Instructions Recorded Confirmed abatacept 125 mg/mL subcutaneous 125 mg subcut WEEKLY 10/08/22 12/07/22 syringe (Orencia) Allergies Allergy/AdvReac Type Severity Reaction Status Date / Time No Known Allergies Allergy Verified 04/02/23 08:22 Review of Systems Review of Systems: All systems reviewed & are unremarkable except as noted in HPI and below PMFSH Past Medical History Medical History Anxiety test positive Rheumatoid arthritis Supervision of other high risk pregnancies, first trimester Family History Family History Father Family history of elevated blood lipids Family history of coronary artery disease Hypertension Mother Patient's mother is Family history of malignant neoplasm of brain, Onset Age: 52 Grandparent Family history of malignant neoplasm of breast Family history of coronary artery disease Social History Social History Social History: Smoking packs per day: 0.5 Smoking cigarettes per day: 10.0 Years smoked: 15 Smoking pack-years: 7.50 Smoking status: Current every day smoker Tobacco type: cigarettes Second hand tobacco smoke exposure: No Alcohol intake: current Alcohol use details: Occasionally Substance use: never Substance use type: does not use Lack of Transportation: No Lack of Food: Never True Current Housing: I Have Housing Concerned About Future Housing: No Difficulty Paying Gas/Electric Bills: No Difficulty Paying for Meds: No Currently Unemployed: No Education: Decline to Answer Difficulty w/ Childcare or Family Care: No Living arrangements: with family Occupation/Education: occupation Gender identity (if verbalized by the patient): Female Sexual Orientation (if Verbalized by the Patient): Straight or Heterosexual Spiritual care concerns: No Exam Const: General: healthy appearing and no acute distress Nutritional Appearance: well nourished Orientation/consciousness: patient oriented x3 Limitations: no limitations HENMT: Mouth: Yes Normal oral and palatal mucosa present Resp: Effort & Inspection: normal respiratory effort Auscultation: clear to auscultation bilaterally Cardio: Rate: regular rate Rhythm: regular rhythm GI: GI Palp: Yes Soft to palpation and Yes Tenderness to palpation present (GI) (llq no rebound) Auscultation: normal bowel sounds Back/Spine/Pelvis: Back: no CVA tenderness Skin: General skin exam: normal color Neuro: General: patient oriented x3, moves all extremities, no meningeal signs and no focal motor deficits Speech: normal speech Extrem: General: normal to inspection and no clubbing, cyanosis or edema Psych: Mental Status: mental status grossly normal Affect: normal affect Attitude: cooperative Course Vital Signs Vital signs: Vital Signs Temperature 98.0 F 04/02/23 08:20 Pulse Rate 100 04/02/23 08:20 Respiratory Rate 15 04/02/23 08:20 Blood Pressure 121/79 04/02/23 08:20 Pulse Oximetry 99 04/02/23 08:20 Oxygen Delivery Room Air 04/02/23 08:20 Temperature 98.0 F 04/02/23 08:20 Pulse Rate 85 04/02/23 10:14 Respiratory Rate 17 04/02/23 10:14 Blood Pressure 122/69 04/02/23 10:14 Pulse Oximetry 99 04/02/23 10:14 Oxygen Delivery Room Air 04/02/23 08:20 MDM - Abdominal Pain Differential Diagnosis Dif
[2023-04-02] MEDS: ONDANSETRON INJ 4 MG/2 ML VIAL IV PUSH (09:23)
[2023-04-02] MEDS: fentaNYL CITRATE INJ (*CRX) 100 MCG/2 ML VIAL 50 MCG IV PUSH (09:23)
[2023-04-02 10:14] VITALS: BP 122/69; PULSE 85; RESP 17; O2SAT 99
== END 2023-04-02 10:15 | disposition home or self-care (01) ==
PROVIDERS: Emergency Provider Emergency Medicine; PCP Family Medicine
DX: K57.32 Diverticulitis of large intestine without perforation or abscess without bleeding (principal); F17.210 Nicotine dependence, cigarettes, uncomplicated; F41.9 Anxiety disorder, unspecified; M06.9 Rheumatoid arthritis, unspecified
CPT/HCPCS: 36415; 74177; 80053; 81001; 81025; 83690; 85025; 87086; 96374; 96375; 99284; J2405; J3010; Q9967

== ENCOUNTER 2023-12-06 13:59 | Emergency (ER) | payer OTHER, SELFPAY ==
[2023-12-06 14:07] VITALS: BP 107/70; PULSE 80; RESP 18; TEMP 36.7; O2SAT 100
--- NOTE | 2023-12-06 14:40 | ED.URI ---
HPI - URI/Sore Throat General Chief Complaint: Upper Respiratory Infection Stated Complaint: Congestion,Fever,Sore Throat,Earache Source: patient and RN notes reviewed Mode of arrival: ambulatory Limitations: no limitations History of Present Illness HPI Narrative: 37-year-old female presented for complaint of nasal congestion and pressure, sore throat, fatigue, headache and fever. Onset 2 days. Reports temp up to 102.8. Taking Mucinex and Sudafed without relief. Denies shortness of breath, wheezing, nausea, vomiting, diarrhea. Denies known sick contacts. MD elicited complaint: cough Related Data Home Medications Medication Instructions Recorded Confirmed abatacept 125 mg/mL subcutaneous 125 mg subcut WEEKLY 10/08/22 12/07/22 syringe (Orencia) meloxicam 15 mg tablet mg 12/06/23 Allergies Allergy/AdvReac Type Severity Reaction Status Date / Time No Known Allergies Allergy Verified 12/06/23 14:13 Review of Systems Review of Systems: CONSTITUTIONAL: Endorses malaise, chills, sweats, fever EYES: Denies visual changes, redness, or discharge ENT: Reports rhinorrhea, congestion, sinus pain, otalgia, sore throat CARDIOVASCULAR: Denies chest pain, palpitations, edema RESPIRATORY: Reports cough, post nasal drainage. Denies dyspnea GASTROINTESTINAL: Denies abdominal pain, nausea, vomiting, diarrhea SKIN: Denies rash or itching MUSCULOSKELETAL: Endorses myalgia PMFSH Past Medical History Medical History Anxiety test positive Rheumatoid arthritis Supervision of other high risk pregnancies, first trimester Family History Family History Father Family history of elevated blood lipids Family history of coronary artery disease Hypertension Mother Patient's mother is Family history of malignant neoplasm of brain, Onset Age: 52 Grandparent Family history of malignant neoplasm of breast Family history of coronary artery disease Social History Social History Social History: Smoking packs per day: 0.5 Smoking cigarettes per day: 10.0 Years smoked: 15 Smoking pack-years: 7.50 Smoking status: Current every day smoker Tobacco type: cigarettes Second hand tobacco smoke exposure: No Alcohol intake: current Alcohol use details: Occasionally Substance use: never Substance use type: does not use Lack of Transportation: No Lack of Food: Never True Current Housing: I Have Housing Concerned About Future Housing: No Difficulty Paying Gas/Electric Bills: No Difficulty Paying for Meds: No Currently Unemployed: No Education: Decline to Answer Difficulty w/ Childcare or Family Care: No Living arrangements: with family Occupation/Education: occupation Gender identity (if verbalized by the patient): Female Sexual Orientation (if Verbalized by the Patient): Straight or Heterosexual Spiritual care concerns: No Exam Narrative: GENERAL: Mildly Ill-appearing, nontoxic no acute distress. EYES: PERRLA, conjunctivae clear ENT: Mucous membranes moist. TM pearly beckford with dull light reflex bilaterally; no tragal tenderness. Oropharynx not erythematous without lesions or exudate, no drooling, no hoarseness, no trismus, uvula midline. No tripod positioning, muffled voice, soft palate or pharyngeal wall bulging NECK: Supple. No lymphadenopathy CHEST: Clear to auscultation, breath sounds equal. No wheezing, rhonchi, rales, or stridor. No respiratory distress, speaks in full sentences. HEART: Regular rate and rhythm. No murmur heard. SKIN: Warm, dry, no rash. NEURO: Alert and oriented x3. PSYCH: Normal mood and affect Course Course Emergency Course: Patient is aware of diagnosis, understands and agrees to treatment plan. Anticipatory guidance given.
== END 2023-12-06 14:47 | disposition home or self-care (01) ==
PROVIDERS: Emergency Provider Nurse Practitioner Family; PCP Family Medicine
DX: U07.1 COVID-19 (principal); F17.210 Nicotine dependence, cigarettes, uncomplicated; M06.9 Rheumatoid arthritis, unspecified
CPT/HCPCS: 87081; 87426; 87804; 87880; 99213; G0463

== ENCOUNTER 2024-04-26 08:03 | Emergency (ER) | payer OTHER, SELFPAY ==
--- NOTE | 2024-04-26 08:12 | ED.GENADULT ---
HPI - General Adult General Chief complaint: Skin/Abscess/Foreign Body Stated complaint: shingles? Time Seen by Provider: 04/26/24 08:12 Source: patient Mode of arrival: ambulatory Limitations: no limitations History of Present Illness HPI narrative: 38-year-old female patient presents to the [facility] with complaints of a rash to the back of the right shoulder. Patient states she has been feeling kind of fatigued since Sunday. Patient does have history of RA. Patient states that time she has gets some shooting pain down the right side of her arm. Patient states she woke up today and noticed the rash to the shoulder area. Patient states that it is a burning pain and does itch. Related Data Home Medications Medication Instructions Recorded Confirmed abatacept 125 mg/mL subcutaneous 125 mg subcut WEEKLY 10/08/22 04/26/24 syringe (Orencia) meloxicam 15 mg tablet 15 mg PO DAILY 12/06/23 04/26/24 Allergies Allergy/AdvReac Type Severity Reaction Status Date / Time No Known Allergies Allergy Verified 04/26/24 08:09 Review of Systems Review of Systems: CONSTITUTIONAL: Denies fever, chills, or sweats. positive fatigue EYES: Denies visual changes, redness, or discharge. ENT: Denies rhinorrhea, congestion, sore throat, or otalgia. CARDIOVASCULAR: Denies chest pain, palpitations, or edema. RESPIRATORY: Denies cough or dyspnea. GASTROINTESTINAL: Denies abdominal pain, nausea, vomiting, or diarrhea. GENITOURINARY: Denies dysuria or hematuria. SKIN: Positive rash with burning and itching. MUSCULOSKELETAL: Denies back pain, joint pain, or myalgia. NEUROLOGIC: Denies headache, numbness, or weakness. PSYCHIATRIC: Denies anxiety or depression. [facility] Past Medical History Medical History Anxiety test positive Rheumatoid arthritis Supervision of other high risk pregnancies, first trimester Family History Family History Father Family history of elevated blood lipids Family history of coronary artery disease Hypertension Mother Patient's mother is Family history of malignant neoplasm of brain, Onset Age: 52 Grandparent Family history of malignant neoplasm of breast Family history of coronary artery disease Social History Social History Social History: Smoking packs per day: 0.5 Smoking cigarettes per day: 10.0 Years smoked: 15 Smoking pack-years: 7.50 Smoking status: Current every day smoker Tobacco type: cigarettes Second hand tobacco smoke exposure: No Alcohol intake: current Alcohol use details: Occasionally Substance use: never Substance use type: does not use Lack of Transportation: No Lack of Food: Never True Current Housing: I Have Housing Concerned About Future Housing: No Difficulty Paying Gas/Electric Bills: No Difficulty Paying for Meds: No Currently Unemployed: No Education: Decline to Answer Difficulty w/ Childcare or Family Care: No Living arrangements: with family Occupation/Education: occupation Gender identity (if verbalized by the patient): Female Sexual Orientation (if Verbalized by the Patient): Straight or Heterosexual Spiritual care concerns: No Comments At the time of my signature I agree with nursing past medical history, surgical, social, and family history. There is no relevant family history pertinent to the presenting complaint. Exam Narrative: GENERAL: Well-appearing, well-nourished, and in no acute distress. HEAD: Normocephalic, atraumatic. EYES: PERRLA and EOMI. ENT: Nares clear, no rhinorrhea or epistaxis. Mucous membranes moist. NECK: Supple. No lymphadenopathy CHEST: Clear to auscultation. No respiratory distress. HEART: Regular rate and rhythm. No murmur heard. Normal peripheral pulses. ABDOMEN: S
[2024-04-26 08:15] VITALS: BP 107/80; PULSE 74; RESP 16; TEMP 36.4; O2SAT 100
== END 2024-04-26 08:30 | disposition home or self-care (01) ==
PROVIDERS: Emergency Provider Nurse Practitioner Family; PCP Family Medicine
DX: B02.9 Zoster without complications (principal); F17.210 Nicotine dependence, cigarettes, uncomplicated; M06.9 Rheumatoid arthritis, unspecified
CPT/HCPCS: 99213; G0463

== ENCOUNTER 2024-07-18 12:13 | Outpatient (CLI) | payer OTHER, SELFPAY ==
--- NOTE | ~2024-07-18 | MM_ITS ---
EXAMINATION: MM screening brionna BI w froilan HISTORY: Screening TECHNIQUE: Craniocaudal and mediolateral oblique 3-D tomosynthesis images were obtained and synthetic 2-D images were generated. CAD analysis was submitted and interpreted. COMPARISON: No prior mammogram is available for comparison at this institution. BREAST PARENCHYMAL COMPOSITION: Dense: The breasts are extremely dense, which lowers the sensitivity of mammography. FINDINGS: There is no evidence of suspicious mass, calcification, or architectural distortion to sugg est malignancy in either breast. There has been no suspicious interval change. IMPRESSION: 1. No mammographic evidence of malignancy. 2. Recommend routine screening mammography in one year. BI-RADS Category 1: Negative Reviewed, dictated and finalized at location B. [place] [employer]
== END 2024-07-18 12:14 | disposition home or self-care (01) ==
LOC: MICIMG 12:14
PROVIDERS: PCP Family Medicine; Visit Provider Obstetrics & Gynecology
DX: Z12.31 Encounter for screening mammogram for malignant neoplasm of breast (principal)
CPT/HCPCS: 77063; 77067

== ENCOUNTER 2025-03-19 13:26 | Outpatient (CLI) | payer OTHER, SELFPAY ==
--- NOTE | ~2025-03-19 | XR_ITS ---
EXAM: XR shoulder LT min 2V DATE: 03/19/2025 14:00 HISTORY: M25.512 - Pain in left shoulder . COMPARISON: None available. FINDINGS: Normal mineralization. No fracture or dislocation. No lytic or blastic lesion. Joint space s are maintained. No erosion or periosteal change. Soft tissues within normal limits. IMPRESSION: No acute osseous finding in the left shoulder. Reviewed, dictated and finalized at location K.
== END 2025-03-19 13:27 | disposition home or self-care (01) ==
LOC: MICIMG 13:26
PROVIDERS: PCP Family Medicine; Visit Provider Physician Assistant Medical
DX: M25.512 Pain in left shoulder (principal)
CPT/HCPCS: 73030